=== PATIENT | female | born 1975 | race Two or more races ===

== ENCOUNTER 2018-08-03 13:42 | Inpatient (IN) | payer OTHER ==
[~2018-08-03] VITALS: Ht 165.1 cm; Wt 59.0 kg
[2018-08-03] MEDS ORDERED: PRENATABS RX T1 EACH PO (14:24)
[2018-08-14] MEDS ORDERED: IROSPAN 24/6 T1 EACH PO (01:09)
== END 2018-08-17 11:26 | disposition home or self-care (01) | DRG 785 ==
LOC: LDR 08-14 00:58 → OB/GYN 08-14 00:58
PROVIDERS: Obstetrics & Gynecology Maternal & Fetal Medicine; ADMIT Obstetrics & Gynecology
PROC: 0UB70ZZ Excision of Bilateral Fallopian Tubes, Open Approach (ICD-10-PCS; 2018-08-14)
PROC: 4A1HXCZ Monitoring of Products of Conception, Cardiac Rate, External Approach (ICD-10-PCS; 2018-08-14)
PROC: 4A033R1 Measurement of Arterial Saturation, Peripheral, Percutaneous Approach (ICD-10-PCS; 2018-08-14)
PROC: 10D00Z1 Extraction of Products of Conception, Low, Open Approach (ICD-10-PCS; principal; 2018-08-14 10:45)
DX: O34.211 Maternal care for low transverse scar from previous cesarean delivery (principal); Z22.330 Carrier of Group B streptococcus; O75.82 Onset (spontaneous) of labor after 37 completed weeks of gestation but before 39 completed weeks gestation, with delivery by (planned) cesarean section; Z30.2 Encounter for sterilization; Z3A.39 39 weeks gestation of pregnancy; Z37.0 Single live birth

== ENCOUNTER 2023-08-11 11:08 | Outpatient (CLI) | payer OTHER ==
[~2023-08-11 11:08] MED LIST: IROSPAN 24/6 T1 EACH PO; PRENATABS RX T1 EACH PO
== END 2023-08-11 11:21 | disposition home or self-care (01) ==
LOC: TOM 11:08
PROVIDERS: ATTEND Otolaryngology Otology & Neurotology
DX: H65.23 Chronic serous otitis media, bilateral (principal)